=== PATIENT | female | born 1995 | race Caucasian/White ===

== ENCOUNTER 2021-12-16 17:03 | Emergency (ER) | payer SELFPAY ==
--- NOTE | ~2021-12-16 | US_ITS ---
EXAMINATION: US PELVIS CLINICAL INFORMATION: Left lower quadrant pain. Evaluate for torsion. Last menstrual period 11/26/2021. History of polycystic ovarian syndrome. COMPARISON: None. TECHNIQUE: Ultrasound of the pelvis is performed using both transabdominal and transvaginal transducers along with Doppler. Transvaginal imaging is performed due to inadequate visualization transabdominally. FINDINGS: Uterus: The uterus is anteverted and measures 8.8 x 4.5 x 5.6 cm. The double wall endometrial thickness is 4 mm. The uterus is smooth in contour and has normal myometrial echogenicity. No visible fibroid. Adnexa: Both ovaries are visualized with preserved flow on color and spectral Doppler at the moment of this examination. Right ovary measures 3.0 x 2.0 x 1.9 cm, volume of 6 mL. There are several peripherally oriented small follicles. Left ovary measures 4.3 x 2.5 x 3.4 cm, volume of 19 mL. There are several peripherally and centrally distributed follicles, largest measuring up to 2.2 cm. Small amount of free fluid layering in the cul-de-sac. US/US pelvic and transvaginal IMPRESSION: Asymmetric enlargement of the left ovary likely related with the presence of dominant follicles. There is preserved flow at the moment of this examination. If pain persists, recommend a short-term interval ultrasound to ensure expected physiologic changes within these follicles and exclude torsion/detorsion.
--- NOTE | ~2021-12-16 | US_ITS ---
EXAMINATION: US PELVIS CLINICAL INFORMATION: Left lower quadrant pain. Evaluate for torsion. Last menstrual period 11/26/2021. History of polycystic ovarian syndrome. COMPARISON: None. TECHNIQUE: Ultrasound of the pelvis is performed using both transabdominal and transvaginal transducers along with Doppler. Transvaginal imaging is performed due to inadequate visualization transabdominally. FINDINGS: Uterus: The uterus is anteverted and measures 8.8 x 4.5 x 5.6 cm. The double wall endometrial thickness is 4 mm. The uterus is smooth in contour and has normal myometrial echogenicity. No visible fibroid. Adnexa: Both ovaries are visualized with preserved flow on color and spectral Doppler at the moment of this examination. Right ovary measures 3.0 x 2.0 x 1.9 cm, volume of 6 mL. There are several peripherally oriented small follicles. Left ovary measures 4.3 x 2.5 x 3.4 cm, volume of 19 mL. There are several peripherally and centrally distributed follicles, largest measuring up to 2.2 cm. Small amount of free fluid layering in the cul-de-sac. US/US pelvic ovarian doppler IMPRESSION: Asymmetric enlargement of the left ovary likely related with the presence of dominant follicles. There is preserved flow at the moment of this examination. If pain persists, recommend a short-term interval ultrasound to ensure expected physiologic changes within these follicles and exclude torsion/detorsion.
[2021-12-16 17:25] VITALS: BP 132/75; PULSE 96; RESP 19; TEMP 36.6; O2SAT 98; BMI 39.5
[2021-12-16 17:47] LABS: MANUAL DIFF FLAG NO
[2021-12-16 17:49] LABS: Basophils Percent Auto 0.4 % (0-2); Eosinophils Percent Auto 0.5 % (0-4); Hematocrit 36.9 % (37.0-47.0); Hemoglobin 11.9 g/dl (12.0-16.0); Imm Gran Abs Auto 0.02 X10*3/uL (0.00-0.03); Imm Gran Pct Auto 0.3 % (0.0-0.4); Lymphocytes Absolute Auto 2.3 X10*3/uL (1.2-4.9); Lymphocytes Percent Auto 30.1 % (20-40); Mean Corpuscular HGB Conc 32.2 g/dl (31.0-35.0); Mean Corpuscular Hemoglobin 26.9 pg (27.0-33.0); Mean Corpuscular Volume 83.3 fL (80.0-98.0); Mean Platelet Volume 10.6 fL (9.4-12.3); Monocytes Absolute Auto 0.6 X10*3/uL (0.1-1.2); Monocytes Percent Auto 7.5 % (2-11); Neutrophils Absolute Auto 4.6 x10*3/uL (2.0-8.3); Neutrophils Percent Auto 61.2 % (45-73); Platelet Count 309 X10*3/uL (160-400); Red Blood Count 4.43 X10*6/uL (4.20-5.50); Red Cell Distribution Width 13.6 % (11.0-16.0); White Blood Count 7.5 X10*3/uL (4.8-10.8)
[2021-12-16 17:52] LABS: Appearance Urine CLEAR; Color Urine YELLOW; Glucose Urine UA NEG (NEG); Leukocyte Esterase Urine NEG (NEG); Nitrite Urine NEG (NEG); PH 6.5 (5.0-8.0); UACC Culture Trigger NO; Urine Blood TRACE (NEG); Urine Ketones NEG (NEG); Urine Protein NEG (NEG-TRACE)
[2021-12-16 17:54] LABS: UPreg QC Valid YES; Urine Pregnancy NEGATIVE (NEGATIVE)
[2021-12-16 18:09] LABS: Bacteria Urine 1+ /LPF; Squamous Epithelial Cell Urine 1+ /LPF; WBC Urine 0-2 /HPF (0-4)
[2021-12-16 18:19] LABS: Alanine Aminotransferase 15 U/L (0-31); Alkaline Phosphatase 96 U/L (39-117); Anion Gap 10 (12-20); Aspartate Amino Transferase 15 U/L (5-31); Bilirubin Direct < 0.2 mg/dL (0.0-0.5); Bilirubin Total 0.2 mg/dL (0.0-1.0); Blood Urea Nitrogen 13 mg/dL (9-16); Calcium 9.4 mg/dL (8.4-10.2); Carbon Dioxide 27 mmol/L (22-29); Chloride 105 mmol/L (96-108); Creatinine Clr Calc Pharmacy 149.5; Estimated Glomerular Filt Rate > 60; Glucose Random 93 mg/dL (60-115); Potassium 3.8 mmol/L (3.3-5.1); Sodium 138 mmol/L (135-145); Total Protein 7.5 g/dL (6.5-8.0)
[2021-12-16 18:36] LABS: Lipase 35 U/L (8-78)
== END 2021-12-16 23:18 | disposition left against medical advice (07) ==
LOC: HO.ED 23:17
PROVIDERS: Emergency Provider Emergency Medicine
DX: R10.9 Unspecified abdominal pain (principal)
CPT/HCPCS: 36415; 76830; 76856; 80048; 80076; 81001; 81025; 83690; 85025; 93975; 99283; 99284